=== PATIENT | male | born 1980 ===

== ENCOUNTER 2024-10-11 06:19 | Day surgery (SDC) | payer BC, SELFPAY | END 2024-10-11 10:58 | disposition home or self-care (01) | LOC: GI 06:19 | PROVIDERS: ATTENDING PHYSICIAN Internal Medicine Gastroenterology | DX: Z12.11 Encounter for screening for malignant neoplasm of colon (principal); Z83.719 Family history of colon polyps, unspecified; K64.8 Other hemorrhoids | CPT/HCPCS: G0105 ==